=== PATIENT | male | born 1935 | race Asian ===

== ENCOUNTER 2022-12-11 22:25 | Emergency (ER) | payer OTHER ==
[~2022-12-11] VITALS: Ht 170.2 cm; Wt 84.4 kg
[2022-12-11 22:29] VITALS: BP 122/96
--- NOTE | 2022-12-11 22:41 | NUR ---
swab collected sent to lab
--- NOTE | 2022-12-11 22:44 | NUR ---
PT TAKEN RAD VIA W/C
--- NOTE | 2022-12-11 22:45 | NUR ---
PT IS ALERT AND ORIENTED X4. PT HAVING SOB. ROOM AIR SATING ON 93 PERCETNT
--- NOTE | 2022-12-11 22:48 | NUR ---
PT TO BED #2
[2022-12-11] MEDS ORDERED: predniSONE 20 MG TAB PO ONE (23:00)
[2022-12-11] MEDS ORDERED: ALBUTEROL SULFATE/IPRATROPIU 3 ML SOL IH ONE (23:00)
--- NOTE | 2022-12-11 23:16 | NUR ---
RT ON THE BEDS
[2022-12-11] MEDS ORDERED: OXYM20SP1 NS (23:39)
[2022-12-11] MEDS ORDERED: AMOX1TAB8 PO (23:39)
[2022-12-11] MEDS ORDERED: PRED20TA5 PO (23:39)
[2022-12-11 23:51] VITALS: BP 122/96
--- NOTE | 2022-12-11 23:53 | NUR ---
Patient discharged with v/s stable. Written and verbal after care instructions given and explained. Patient verbalized understanding. Ambulatory with steady gait. All questions addressed prior to discharge. Advised to follow up with PMD. PT LEFT WITH HIS BELONIGINGS
== END 2022-12-11 23:51 | disposition home or self-care (01) ==
LOC: MED 22:25
DX: J01.90 Acute sinusitis, unspecified (principal); Z20.822 Contact with and (suspected) exposure to COVID-19; J45.909 Unspecified asthma, uncomplicated
CPT/HCPCS: 71045; 87426; 87804; 94640; 94760; 99284; J7512